=== PATIENT | male | born 1950 | race Caucasian/White ===

== ENCOUNTER 2019-05-26 01:24 | Emergency (ER) | payer MEDICARE, OTHER ==
[2019-05-26] MEDS ORDERED: LIDOCAINE 1%/EPINEPHRINE INJ 20 ML VIAL INJ ONE (04:10)
--- NOTE | 2019-05-26 04:11 | ER Document Report ---
ED Head/Face/Scalp Injury - General Chief Complaint: Head Injury Stated Complaint: HEAD INJURY WITH LACERATION Time Seen by Provider: 05/26/19 04:00 Notes: Patient is a 68-year-old male that comes emergency department for chief complaint of laceration to the right posterior scalp. He states he was getting up out of bed when he accidentally smacked his head on the wall causing a laceration and bleeding. He denies being knocked out, vomiting, family states he has not been confused. No alcohol reported. He is not on a blood thinner. Tetanus up-to-date within 5 years. TRAVEL OUTSIDE OF THE [place] IN LAST 30 DAYS: No - Related Data Allergies/Adverse Reactions: Penicillins Allergy (Verified 05/26/19 02:48) Past Medical History - General Information source: Patient, Relative - Social History Smoking Status: Former Smoker Chew tobacco use (# tins/day): No Frequency of alcohol use: Occasional Drug Abuse: None Lives with: Family Family History: Reviewed & Not Pertinent Patient has suicidal ideation: No Patient has homicidal ideation: No - Immunizations Immunizations up to date: Yes Hx Diphtheria, Pertussis, Tetanus Vaccination: Yes Review of Systems - Review of Systems Constitutional: No symptoms reported EENT: No symptoms reported Cardiovascular: No symptoms reported Respiratory: No symptoms reported Gastrointestinal: No symptoms reported Genitourinary: No symptoms reported Male Genitourinary: No symptoms reported Musculoskeletal: See HPI Skin: See HPI Hematologic/Lymphatic: No symptoms reported Neurological/Psychological: No symptoms reported Physical Exam - Vital signs Vitals: Temp Pulse Resp BP Pulse Ox 97.8 F 70 16 116/66 97 05/26/19 01:53 05/26/19 01:53 05/26/19 01:53 05/26/19 01:53 05/26/19 01:53 - Notes Notes: GENERAL: Alert, interacts well. No acute distress. HEAD: Normocephalic. 3 cm vertical laceration over the right posterior temporal/occipital area with dried blood around the area. No hematoma noted. No other traumatic findings noted. EYES: Pupils equal, round, and reactive to light. Extraocular movements intact. ENT: Oral mucosa moist, tongue midline. Oropharynx unremarkable. Airway patent. Nares patent, no nasal septal hematoma, TM's intact. NECK: Full range of motion. Supple. Trachea midline. LUNGS: Clear to auscultation bilaterally, no wheezes, rales, or rhonchi. No respiratory distress. HEART: Regular rate and rhythm. No murmur ABDOMEN: Soft, non-tender. Non-distended. Bowel sounds present in all 4 quadrants. GENITOURINARY: Deferred EXTREMITIES: Moves all 4 extremities spontaneously. No edema, normal radial and dorsalis pedis pulses bilaterally. No cyanosis. BACK: no cervical, thoracic, lumbar midline tenderness. No saddle anesthesia, normal distal neurovascular exam. Moves all extremities in full range of motion. NEUROLOGICAL: Alert and oriented x3. Normal speech. Cranial nerves II through XII grossly intact. PSYCH: Normal affect, normal mood. SKIN: Warm, dry, normal turgor. No rashes or lesions noted. Course - Re-evaluation Re-evalutation: Patient is alert and oriented. He is smiling and well-appearing. He does have a 3 cm laceration to the posterior scalp. This was partial-thickness. No other signs of trauma. No neurological deficit on exam. CAT scan of the head does not show intracranial bleed or any concerning findings, this was performed because of patient's age and the wound. Wound repaired using fareed after thorough cleansing. Discussed head injury precautions, wound care, follow-up, return precautions. Patient and family state understanding and agreement. Stable at time of discharge. - Vital Signs Vital signs: Temp Pulse Resp BP Pulse Ox 97.6 F 61 16 100/64 95 05/26/19 05:41 05/26/19 05:41 05/26/19 05:41 05/26/19 05:41 05/26/19 05:41 Procedures - Laceration/Wound Repair Right posterior temporal/occipital scalp Wound length (cm): 3 Wound's Depth, Shape: Linear Laceration pre-procedure: Sterile PPE donned, Sterile drapes applied, Shur-Clens applied Anesthetic type: 1% Lidocaine w/epi Volume Anesthetic (mLs): 6 Wound explored: Clean, No foreign body removed Wound Repaired With: [place] Number of Sutures: 4 - fareed Post-procedure NV exam normal: Yes Complications: No Discharge - Discharge Clinical Impression: Scalp laceration Qualifiers: Encounter type: initial encounter Qualified Code(s): S01.01XA - Laceration without foreign body of scalp, initial encounter Condition: Stable Disposition: HOME, SELF-CARE Additional Instructions: The imaging of the head does not show any concerning findings. Please follow head injury precautions listed below. The scalp laceration has been closed with fareed. These need to be removed by primary care in 1 week. Keep clean with soap and water, dab dry. Return to the emergency department for any concerning symptoms or if something is not right. Head Injury Precautions At this point, there is no evidence that your head injury is serious. O bservation is necessary, however. Limit activity for the first 24 hours. During the first 24 hours, check to see approximately every two to three hours that the patient is easily arousable, responds normally, and can perform common tasks such as walking without difficulty. Contact your doctor or go to the hospital if any of the following things occur: Persistent vomiting, difficulty in arousing the patient, worsening or continued headache, or failure to improve as expected. Head injuries can cause symptoms that persist for a few days or even a few weeks.
--- NOTE | 2019-05-26 05:25 | RADIOLOGY REPORT (SQ) ---
EXAM DESCRIPTION: CT HEAD WITHOUT IV CONTRAST COMPLETED DATE/TME: 05/26/2019 04:09 CLINICAL HISTORY: 68 years Male, head injury, scalp laceration COMPARISON: None. TECHNIQUE: No contrast. Coronal and sagittal reformat. This exam was performed according to our departmental dose-optimization program, which includes automated exposure control, adjustment of the mA and/or kV according to patient size and/or use of iterative reconstruction technique. FINDINGS: No hemorrhage or infarct. No mass, mass effect, or midline shift. Brain and extra-axial structures appear intact. IMPRESSION: Normal CT of the head.
[2019-05-26 05:43] VITALS: BP 100/64
== END 2019-05-26 05:43 | disposition home or self-care (01) ==
LOC: ER 01:24
PROC: 0HQ0XZZ Repair Scalp Skin, External Approach (ICD-10-PCS; principal; 2019-05-26)
DX: S01.01XA Laceration without foreign body of scalp, initial encounter (principal); W22.01XA Walked into wall, initial encounter; Z87.891 Personal history of nicotine dependence
CPT/HCPCS: 99283; 70450; 12002; J3490